=== PATIENT | female | born 1955 | race Caucasian/White ===

== ENCOUNTER 2021-04-16 11:59 | Outpatient (CLI) | payer OTHER | END 2021-04-16 12:02 | disposition home or self-care (01) | LOC: MAMO-SONO 11:59 | PROVIDERS: ATTEND Internal Medicine Cardiovascular Disease | DX: N63.11 Unspecified lump in the right breast, upper outer quadrant (principal); N63.12 Unspecified lump in the right breast, upper inner quadrant; Z12.31 Encounter for screening mammogram for malignant neoplasm of breast ==

== ENCOUNTER → 2021-04-16 15:54 | Outpatient (CLI) | payer OTHER | END | disposition home or self-care (01) | LOC: LAB 07:57 | PROVIDERS: ATTEND Internal Medicine Cardiovascular Disease | DX: I10 Essential (primary) hypertension (principal); E11.9 Type 2 diabetes mellitus without complications; E03.8 Other specified hypothyroidism; E78.2 Mixed hyperlipidemia; Z12.11 Encounter for screening for malignant neoplasm of colon; E55.9 Vitamin D deficiency, unspecified; E11.39 Type 2 diabetes mellitus with other diabetic ophthalmic complication; E11.65 Type 2 diabetes mellitus with hyperglycemia ==

== ENCOUNTER → 2021-04-16 | Outpatient (CLI) | payer OTHER ==
[~2021-04-16] MED LIST: NORFLEX100MG PO
== END | disposition home or self-care (01) ==
LOC: NUCLEAR 10:51
PROVIDERS: ATTEND Internal Medicine Cardiovascular Disease
DX: M81.0 Age-related osteoporosis without current pathological fracture (principal)

== ENCOUNTER 2021-04-22 08:00 | Outpatient (CLI) | payer OTHER ==
[2021-05-08] MEDS ORDERED: DICLOFENAC POTA50 MG PO (16:48)
== END 2021-04-22 08:30 | disposition home or self-care (01) ==
LOC: PPH VACUNA 08:00
PROVIDERS: ATTEND Emergency Medicine Pediatric Emergency Medicine
DX: Z23 Encounter for immunization (principal)

== ENCOUNTER → 2021-05-15 | Outpatient (CLI) | payer OTHER ==
[~2021-05-15] MED LIST changes: +DICLOFENAC POTA50 MG PO
== END | disposition home or self-care (01) ==
LOC: RAD 07:26
PROVIDERS: ATTEND Physical Medicine & Rehabilitation
DX: M54.2 Cervicalgia (principal); M54.6 Pain in thoracic spine; M54.51 Vertebrogenic low back pain

== ENCOUNTER 2021-05-22 13:43 | Outpatient (CLI) | payer OTHER | END 2021-05-22 13:57 | disposition home or self-care (01) | LOC: MRI 13:43 | PROVIDERS: ATTEND Orthopaedic Surgery | DX: M25.461 Effusion, right knee (principal); M25.561 Pain in right knee | CPT/HCPCS: 73718 ==

== ENCOUNTER 2021-06-14 09:36 | Outpatient (CLI) | payer OTHER | END 2021-06-14 09:41 | disposition home or self-care (01) | LOC: MRI 09:36 | PROVIDERS: ATTEND Physical Medicine & Rehabilitation | DX: M50.320 Other cervical disc degeneration, mid-cervical region, unspecified level (principal); M04.2 Cryopyrin-associated periodic syndromes | CPT/HCPCS: 72141 ==

== ENCOUNTER 2021-07-22 22:43 | Emergency (ER) | payer OTHER ==
[~2021-07-22] VITALS: Ht 167.6 cm; Wt 77.1 kg
[2021-07-22] MEDS ORDERED: ESTAZOLAM2 MG PO (22:59)
[2021-07-22] MEDS ORDERED: NEURONTIN600 M1 PO (22:59)
== END 2021-07-23 05:25 | disposition home or self-care (01) ==
LOC: ER 22:43
DX: S01.02XA Laceration with foreign body of scalp, initial encounter (principal); S30.0XXA Contusion of lower back and pelvis, initial encounter; W10.8XXA Fall (on) (from) other stairs and steps, initial encounter; Y93.89 Activity, other specified; Y92.89 Other specified places as the place of occurrence of the external cause; Y99.8 Other external cause status

== ENCOUNTER 2021-07-31 09:42 | Emergency (ER) | payer OTHER ==
[~2021-07-31] VITALS: Ht 167.6 cm; Wt 79.4 kg
[~2021-07-31 09:42] MED LIST changes: +ESTAZOLAM2 MG PO; +NEURONTIN600 M1 PO
[2021-07-31] MEDS ORDERED: CYMBALTA60 MG PO (09:55)
[2021-07-31] MEDS ORDERED: COZAAR50 MG PO (09:56)
== END 2021-07-31 10:37 | disposition home or self-care (01) ==
LOC: ER 09:42
DX: Z48.02 Encounter for removal of sutures (principal)

== ENCOUNTER 2022-02-12 12:27 | Outpatient (CLI) | payer OTHER ==
[~2022-02-12 12:27] MED LIST changes: +COZAAR50 MG PO; +CYMBALTA60 MG PO; +PREDNISONE20 M1
== END 2022-02-12 12:37 | disposition home or self-care (01) ==
LOC: PPH VACUNA 12:27
PROVIDERS: ATTEND Emergency Medicine Pediatric Emergency Medicine
DX: Z23 Encounter for immunization (principal)

== ENCOUNTER 2022-06-13 10:34 | Outpatient (CLI) | payer OTHER | END 2022-06-13 10:47 | disposition home or self-care (01) | LOC: MAMO-SONO 10:34 | PROVIDERS: ATTEND Internal Medicine Cardiovascular Disease | DX: N63.11 Unspecified lump in the right breast, upper outer quadrant (principal); R07.9 Chest pain, unspecified ==

== ENCOUNTER 2022-06-18 11:18 | Outpatient (CLI) | payer OTHER | END 2022-06-18 11:31 | disposition home or self-care (01) | LOC: MRI 11:18 | PROVIDERS: ATTEND Radiology Diagnostic Neuroimaging | DX: M50.11 Cervical disc disorder with radiculopathy, high cervical region (principal) | CPT/HCPCS: 72141 ==

== ENCOUNTER 2022-06-25 16:45 | Emergency (ER) | payer OTHER ==
[~2022-06-25] VITALS: Ht 167.6 cm; Wt 76.2 kg
== END 2022-06-25 18:32 | disposition home or self-care (01) ==
LOC: ER 16:45
DX: S52.572A Other intraarticular fracture of lower end of left radius, initial encounter for closed fracture (principal); W18.30XA Fall on same level, unspecified, initial encounter; Y93.9 Activity, unspecified; Y92.018 Other place in single-family (private) house as the place of occurrence of the external cause; Y99.9 Unspecified external cause status; Z88.0 Allergy status to penicillin; Z88.2 Allergy status to sulfonamides; Z88.8 Allergy status to other drugs, medicaments and biological substances

== ENCOUNTER 2022-11-12 13:58 | Outpatient (CLI) | payer OTHER | END 2022-11-12 14:19 | disposition home or self-care (01) | LOC: MRI 13:58 | PROVIDERS: ATTEND Orthopaedic Surgery | DX: S83.201A Bucket-handle tear of unspecified meniscus, current injury, left knee, initial encounter (principal); M25.562 Pain in left knee; M25.561 Pain in right knee | CPT/HCPCS: 73721 ==

== ENCOUNTER 2023-02-02 12:56 | Outpatient (CLI) | payer OTHER | END 2023-02-02 13:05 | disposition home or self-care (01) | LOC: RAD 12:56 | PROVIDERS: ATTEND Orthopaedic Surgery | DX: R07.9 Chest pain, unspecified (principal) ==

== ENCOUNTER → 2023-02-20 12:44 | Outpatient (CLI) | payer OTHER | END | disposition home or self-care (01) | LOC: LAB 12:44 | DX: M60.88 Other myositis, other site (principal); E06.3 Autoimmune thyroiditis ==

== ENCOUNTER 2024-03-15 08:47 | Outpatient (CLI) | payer OTHER | END 2024-03-15 08:56 | disposition home or self-care (01) | LOC: MAMO-SONO 08:47 | PROVIDERS: ATTEND Internal Medicine Cardiovascular Disease | DX: N60.11 Diffuse cystic mastopathy of right breast (principal); N60.12 Diffuse cystic mastopathy of left breast; Z12.31 Encounter for screening mammogram for malignant neoplasm of breast ==

== ENCOUNTER → 2024-03-15 10:38 | Outpatient (CLI) | payer OTHER | END | disposition home or self-care (01) | LOC: NUCLEAR 10:38 | PROVIDERS: ATTEND Internal Medicine Cardiovascular Disease | DX: M81.0 Age-related osteoporosis without current pathological fracture (principal); E55.9 Vitamin D deficiency, unspecified ==

== ENCOUNTER 2024-04-08 10:22 | Outpatient (CLI) | payer OTHER | END 2024-04-08 10:25 | disposition home or self-care (01) | LOC: MRI 10:22 | DX: M75.121 Complete rotator cuff tear or rupture of right shoulder, not specified as traumatic (principal) | CPT/HCPCS: 73221 ==

== ENCOUNTER 2025-05-12 10:04 | Outpatient (CLI) | payer OTHER | END 2025-05-12 10:13 | disposition home or self-care (01) | LOC: MRI 10:04 | PROVIDERS: ATTEND Internal Medicine Cardiovascular Disease | DX: R41.2 Retrograde amnesia (principal); R55 Syncope and collapse | CPT/HCPCS: 70551 ==